=== PATIENT | male | born 1985 | race Caucasian/White ===

== ENCOUNTER 2017-06-11 20:57 | Emergency (ER) | payer SELFPAY ==
[~2017-06-11] VITALS: Ht 162.6 cm; Wt 58.7 kg
[2017-06-11 20:59] VITALS: TEMP 36.8; Ht 162.6 cm; Wt 58.7 kg
[2017-06-11] MEDS ORDERED: IPRATROPIUM BROMIDE/ALBUTEROL respimat INH INH STA (21:13)
[2017-06-11] MEDS ORDERED: IBUPROFEN 800 MG TAB PO STA (21:13)
--- NOTE | 2017-06-11 21:19 | EMERGENCY ROOM VISIT NOTE ---
History Report prepared by Jarek: Benjamín Yoon Under the Supervision of: Dr. Chase Jiménez M.D. First contact with patient: 21:02 Chief Complaint: RIB PAIN Stated Complaint: LEFT SIDE CHEST PAIN, HURTS TO BREATH IN/MOVE History of Present Illness The patient is a 31 year old male who presents to the Emergency Room with complaints of waxing and waning left sided rib pain beginning yesterday. The patient states that he has had a cough for the past week that might be the cause of his rib pain. He notes that his cough has improved and reports that he has not experienced similar rib pain in the past. The patient states that his pain worsens with movement side to side but improves when he lays flat on his back. He notes that he had a hot flash this morning and broke out into a cold sweat earlier today. He reports that he became lightheaded during this episode and also complains of a constant runny nose for the past week. The patient states that he took one Tylenol with no relief to his symptoms. He denies any nausea, vomiting, diarrhea, constipation, and urinary problems. He notes that he smokes one pack of cigarettes a day, occasionally drinks alcohol, and currently takes no medication. He reports that he has a family history of heart attacks and lung cancer. Source of History: patient Onset: yesterday Timing: waxes/wanes Modifying Factors (Worsening): movement Modifying Factors (Relieving): other (laying flat on his back) Associated Symptoms: + diaphoresis, + cough, No nausea, No vomiting, No diarrhea, No urinary symptoms Note: he also complains of a hot flash, runny nose and lightheadedness. he denies any constipation Review of Systems See HPI for pertinent positives and negatives. A total of ten systems were reviewed and were otherwise negative. Past Medical & Surgical Medical Problems: (1) No chronic diseases present Family History FH: heart attack FHx: lung cancer Social History Smoking Status: Current Every Day Smoker Alcohol Use: heavy Drug Use: none Occupation Status: employed Current/Historical Medications Scheduled Azithromycin (Zithromax), 250 MG PO DAILY Prednisone (Prednisone), 3 TAB PO DAILY Scheduled PRN Ibuprofen Tab (Motrin), 800 MG PO Q8H PRN for Pain Allergies Coded Allergies: Penicillins (Unverified Allergy, HIVES, 11/30/12) Physical Exam Vital Signs Date Time Temp Pulse Resp B/P (MAP) Pulse Ox O2 Delivery O2 Flow Rate FiO2 06/11/17 23:40 67 18 113/77 96 06/11/17 22:38 76 18 122/75 98 Room Air 06/11/17 20:59 36.8 84 20 127/90 94 Room Air Physical Exam GENERAL: Awake, alert, well-appearing, in no distress HENT: Normocephalic, atraumatic. Oropharynx unremarkable. Dry mucous membranes. EYES: Normal conjunctiva. Sclera non-icteric. NECK: Supple. No nuchal rigidity. FROM. No JVD. RESPIRATORY: No crepitus, lungs with scant wheeze but otherwise good air movement. CARDIAC: Regular rate, normal rhythm. Extremities warm and well perfused. Pulses equal. ABDOMEN: Soft, non-distended. No tenderness to palpation. No rebound or guarding. No masses. RECTAL: Deferred. MUSCULOSKELETAL: Mild reproducible tenderness in the left mid axillary region. The back is symmetrical on inspection without obvious abnormality. There is no CVA tenderness to palpation. No joint edema. LOWER EXTREMITIES: Calves are equal size bilaterally and non-tender. No edema. No discoloration. NEURO: Normal sensorium. No sensory or motor deficits noted. SKIN: No rash or jaundice noted. Medical Decision & Procedures ER Provider Diagnostic Interpretation: Radiology results as stated below per my review and radiologist interpretation: CHEST ONE VIEW PORTABLE FINDINGS: Cardiomediastinal and hilar silhouettes are within normal limits. There is no pneumothorax, pleural effusion, focal airspace consolidation or overt pulmonary edema. Bones of the chest are grossly intact. IMPRESSION: No acute cardiopulmonary process. The above report was generated using voice recognition software. It may contain grammatical, syntax or spelling errors. Electronically signed by: Brandon Alexandra M.D. 06/11/2017 9:48 PM Medications Administered Medications (Trade) Dose Ordered Sig/Kwaku Route Start Time Stop Time Status Last Admin Dose Admin Albuterol/ Ipratropium (Combivent Respimat Inh) 2 puffs NOW STAT INH 06/11/17 21:13 06/11/17 21:17 DC 06/11/17 21:59 2 PUFFS Ibuprofen (Motrin Tab) 800 mg NOW STAT PO 06/11/17 21:13 06/11/17 21:17 DC 06/11/17 21:35 800 MG Azithromycin (Zithromax Tab) 500 mg NOW ONCE PO 06/11/17 23:30 06/11/17 23:31 DC 06/11/17 23:40 500 MG Prednisone (PredniSONE TAB) 60 mg NOW STAT PO 06/11/17 23:28 06/11/17 23:29 DC 06/11/17 23:40 60 MG ECG Indication: chest pain Rate (beats per minute): 63 Rhythm: normal sinus, other (sinus arrhythmia) Findings: no acute ischemic change, other (Normal axis) ED Course 2104: The patient was evaluated in room C9. A complete history and physical exam was performed. 2112: Ibuprofen 800mg PO, Albuterol/Ipratropium 2 puffs INH 2327: Prednisone 60mg PO 2329: Azithromycin 500mg PO 31: I reevaluated the patient. Discussed results and discharge instructions: He verbalized understanding and agreement. The patient is ready for discharge. Medical Decision I reviewed the patient's past medical history, medications, and the nursing notes as described above. Differential diagnoses include: pneumonia, bronchitis, musculoskeletal strain, and PE. The patient is a 31-year-old gentleman who is a chronic smoker who presents to emergency department with left chest wall/rib pain after having cough and congestion last week with severe episode where all of a sudden he felt the sharp pain that has been constant and worse with movement. History of present illness. He does report some episodes of chills but no objective fevers. Reports his cough has improved but the pain has persisted and he has only taken one Tylenol since the pain started yesterday. Denies pain when lying flat. EKG unremarkable. Patient improved with IB and MDI. Given reproducible constant pain in setting of coughing and minimal cardiac risk factors, ACS not likely. No indication for labs a this time. CXR with gross infiltrates however given patient's prolonged sx in setting of chronic smoking will treat with azithro, prednisone, MDI provided. Findings and plan for follow-up reviewed with patient. Patient agreeable and d/c'd per discharge instructions. Medication Reconcilliation Current Medication List: was personally reviewed by me Blood Pressure Screening Patient's blood pressure: Normal blood pressure Impression Primary Impression: Bronchitis Additional Impression: Costochondritis, acute Scribe Attestation The scribe's documentation has been prepared under my direction and personally reviewed by me in its entirety. I confirm that the note above accurately reflects all work, treatment, procedures, and medical decision making performed by me. Departure Information Dispostion Home / Self-Care Prescriptions Ibuprofen Tab (MOTRIN) 800 Mg Tab 800 MG PO Q8H Y for Pain for 14 Days, #42 TAB Prov: Chase Jiménez M.D. 06/11/17 Prednisone (Prednisone) 20 Mg Tab 3 TAB PO DAILY for 4 Days, #12 TAB FOR 4 DAYS Prov: Chase Jiménez M.D. 06/11/17 Azithromycin (Zithromax) 250 Mg Tab 250 MG PO DAILY, #4 TAB Prov: Chase Jiménez M.D. 06/11/17 Referrals No Doctor, Assigned (PCP) Forms HOME CARE DOCUMENTATION FORM, IMPORTANT VISIT INFORMATION, WORK / SCHOOL INSTRUCTIONS Patient Instructions Bronchitis Acute Dc, ED Smoking Cessation, My [facility] Additional Instructions Please follow up with and establish a primary care physician in the next week for re-evaluation. You likely have a bronchitis and a muscle strain. Otherwise, your exam, EKG, chest xray did not show signs of an emergent condition at this time. Azithromycin and prednisone as directed. Albuterol 2 puffs every 4 hours for the next 48 hours, and then every 4 hours as needed thereafter. Drink plenty of fluids to ensure hydration. Ibuprofen and acetaminophen for pain and fever as needed. Return to the emergency department for worsening symptoms as described in the accompanying instructions. Problem Qualifiers
--- NOTE | 2017-06-11 21:49 | DIAGNOSTIC IMAGING REPORT ---
CHEST ONE VIEW PORTABLE HISTORY: 31 years-old Male cough acute cough with rib pain, laterality not specified COMPARISON: Chest radiograph 03/20/2013 TECHNIQUE: Portable upright AP view of the chest FINDINGS: Cardiomediastinal and hilar silhouettes are within normal limits. There is no pneumothorax, pleural effusion, focal airspace consolidation or overt pulmonary edema. Bones of the chest are grossly intact. IMPRESSION: No acute cardiopulmonary process. The above report was generated using voice recognition software. It may contain grammatical, syntax or spelling errors. Electronically signed by: Brandon Alexandra M.D. 06/11/2017 9:48 PM Dictated Date/Time: 06/11/2017 9:47 PM
[2017-06-11] MEDS ORDERED: PRED20TA PO (23:25)
[2017-06-11] MEDS ORDERED: AZIT250T PO (23:25)
[2017-06-11] MEDS ORDERED: IBUP-1451 PO (23:27)
[2017-06-11] MEDS ORDERED: AZITHROMYCIN 250 MG TAB PO ONE (23:30)
[2017-06-11 23:40] VITALS: BP 113/77; PULSE 67; O2SAT 96
== END 2017-06-11 23:44 | disposition home or self-care (01) ==
LOC: C.EDB 20:58 → C.EDC 23:44
DX: J40 Bronchitis, not specified as acute or chronic (principal); M94.0 Chondrocostal junction syndrome [Tietze]; F17.210 Nicotine dependence, cigarettes, uncomplicated; Z80.9 Family history of malignant neoplasm, unspecified; Z82.49 Family history of ischemic heart disease and other diseases of the circulatory system